=== PATIENT | male | born 1950 | race Two or more races ===

== ENCOUNTER 2019-03-09 08:40 | Emergency (ER) | payer BC, MEDICARE ==
[~2019-03-09] VITALS: Ht 193 cm; Wt 103.0 kg
[2019-03-09] MEDS ORDERED: ACETAMINOPHEN WITH CODEINE 300/30MG TABLET PO ONE (10:15)
[2019-03-09 10:17] VITALS: BP 134/89
== END 2019-03-09 10:21 | disposition home or self-care (01) ==
LOC: ER 08:40
DX: M54.5 Low back pain (principal)
CPT/HCPCS: 99282